=== PATIENT | female | born 1965 | race Caucasian/White ===

== ENCOUNTER 2021-04-03 19:07 | Observation (INO) ==
[2021-04-03] MEDS ORDERED: ASPIRIN CHEW 81 MG TABLET PO STA (19:37)
[2021-04-03 19:49] LABS: Basophils # 0.1 10*3/uL (0.0-0.2); Basophils % 0.6 % (0.0-0.8); Eosinophils # 0.1 10*3/uL (0.0-0.87); Eosinophils % 1.3 % (0.00-10.9); Hematocrit 38.1 VOL% (35.7-47.0); Hemoglobin 12.5 GM/DL (12.0-16.0); Immature Granulocytes % 0.5 %; Immature Granulocytes Absolute 0.05 #; Lymphocytes # 3.3 10*3/uL (1.4-4.0); Mean Corpuscular HGB Conc 32.8 GM/DL (32-36); Mean Corpuscular Volume 88.6 FL (87-102); Mean Platelet Volume 10.7 FL (9.6-12.0); Monocytes % 5.3 % (1.7-12.7); Neutrophils % 61.3 % (38.7-73.9); Platelet Count 262 T/CUMM (130-400); Red Cell Distribution Width 12.3 % (9.3-17.3); White Blood Count 10.6 T/CUMM (4-12)
[2021-04-03 20:09] LABS: Alanine Aminotransferase 37 U/L (13-56); Albumin 3.9 G/DL (3.4-5.0); Alkaline Phosphatase 75 U/L (45-117); Aspartate Amino Transferase 24 U/L (0-37); Bilirubin,Total < 0.39 MG/DL (0.2-1.0); Blood Urea Nitrogen 23 MG/DL (7-18); Calcium 9.1 MG/DL (8.5-10.1); Carbon Dioxide 27 MMOL/L (21-32); Estimated Glom Filtration Rate 67 ML/MIN; Glucose 174 MG/DL (74-106); Osmolality,Calculated 280.8 MOS/KG (273-304); Potassium 4.5 MMOL/L (3.5-5.1); Sodium 137 MMOL/L (136-145); Total Protein 7.1 G/DL (6.4-8.2)
[2021-04-03] MEDS ORDERED: ACETAMINOPHEN 325 MG TABLET PO PRN (22:32)
[2021-04-03] MEDS ORDERED: ONDANSETRON 4 MG/2 ML VIAL IV PRN (22:32)
[2021-04-03] MEDS ORDERED: GLUCAGON 1 MG VIAL IM PRN (22:32)
[2021-04-03] MEDS ORDERED: MORPHINE 4 MG/1 ML VIAL IV PRN (22:32)
[2021-04-03] MEDS ORDERED: DOCUSATE SODIUM 100 MG CAPSULE PO PRN (22:32)
[2021-04-03] MEDS ORDERED: hydrALAZINE 20 MG/1 ML VIAL IV PRN (22:32)
[2021-04-03] MEDS ORDERED: DEXTROSE 50% 25 GM/50 ML VIAL IV PRN (22:32)
[2021-04-03] MEDS ORDERED: ATORVASTATIN 40 MG TABLET PO STA (22:35)
[2021-04-03] MEDS ORDERED: ENOXAPARIN 40 MG/0.4 ML SYRINGE SUBCUT SCH (23:00)
[2021-04-03 23:36] VITALS: BP 140/72
[2021-04-04 04:46] LABS: Basophils # 0.1 10*3/uL (0.0-0.2); Basophils % 0.6 % (0.0-0.8); Eosinophils # 0.2 10*3/uL (0.0-0.87); Eosinophils % 2.2 % (0.00-10.9); Hematocrit 35.1 VOL% (35.7-47.0); Hemoglobin 12.1 GM/DL (12.0-16.0); Immature Granulocytes % 0.4 %; Immature Granulocytes Absolute 0.04 #; Lymphocytes # 3.7 10*3/uL (1.4-4.0); Mean Corpuscular HGB Conc 34.5 GM/DL (32-36); Mean Corpuscular Volume 87.1 FL (87-102); Mean Platelet Volume 10.7 FL (9.6-12.0); Monocytes % 5.4 % (1.7-12.7); Neutrophils % 58.4 % (38.7-73.9); Platelet Count 226 T/CUMM (130-400); Red Blood Count 4.03 MC/CUMM (3.8-5.5); White Blood Count 11.1 T/CUMM (4-12)
[2021-04-04 05:13] LABS: Calcium 8.4 MG/DL (8.5-10.1); Osmolality,Calculated 274.2 MOS/KG (273-304); Potassium 3.6 MMOL/L (3.5-5.1); Risk Ratio 7.29; Thyroid Stimulating Hormone 0.999 uIU/ml (0.358-3.74); VLDL CHOLESTEROL 58.6 MG/DL
[2021-04-04] MEDS: INSULIN LISPRO 100 UNIT/ML SUBCUT SCH ×2 (07:49→12:11)
[2021-04-04] MEDS ORDERED: ASPIRIN EC 81 MG TABLET PO SCH (09:00)
[2021-04-04] MEDS ORDERED: BISOPROLOL 5 MG TABLET PO SCH (09:30)
[2021-04-04] MEDS ORDERED: LEVOTHYROXINE 125 MCG TABLET PO SCH (09:30)
[2021-04-04] MEDS ORDERED: OLMESARTAN 20 MG TABLET PO SCH (09:30)
[2021-04-04] MEDS ORDERED: DEXTROSE 50% 25 GM/50 ML VIAL IV PRN (10:59)
[2021-04-04] MEDS ORDERED: GLUCAGON 1 MG VIAL IM PRN (10:59)
[2021-04-04] MEDS ORDERED: buPROPion 75 MG TABLET PO SCH (11:00)
[2021-04-04] MEDS ORDERED: ATORVASTATIN 40 MG TABLET PO SCH (21:00)
[2021-04-05] MEDS ORDERED: hydroCHLOROthiazide 12.5 MG CAPSULE PO SCH (09:00)
[2021-04-05] MEDS ORDERED: amLODIPine 5 MG TABLET PO SCH (09:00)
== END 2021-04-04 15:13 | disposition home or self-care (01) ==
LOC: N.ED 19:07 → N.EDINP 19:07 → N.ICU 23:55
PROVIDERS: ADMIT Internal Medicine; ATTEND Internal Medicine